=== PATIENT | female | born 1960 | race Caucasian/White ===

== ENCOUNTER 2022-05-12 02:13 | Observation (INO) ==
[2022-05-12 02:35] LABS: Basophils # 0.1 K/mcL (0.0-0.2); Basophils % 0.4 %; Eosinophils # 0.4 K/mcL (0.0-0.6); Eosinophils % 2.8 %; Hematocrit 46.3 % (35.3-44.9); Hemoglobin 15.4 g/dL (11.5-15.4); Immature Granulocytes % 0.4 % (0-4); Lymphocytes # 1.8 K/mcL (0.6-4.6); Lymphocytes % 13.2 %; Mean Corpuscular HGB Conc 33.3 g/dL (31.6-35.5); Mean Corpuscular Hemoglobin 30.1 pg (28.0-33.3); Mean Corpuscular Volume 90.4 fL (83.0-100.0); Mean Platelet Volume 8.3 fL (9.4-12.4); Monocytes % 7.3 %; Neutrophils # 10.3 K/mcL (1.6-8.9); Platelet Count 251 K/mcL (140-400); Red Blood Count 5.12 M/mcL (3.82-4.97); Red Cell Distribution Width 12.9 % (11.5-14.5); Segmented Neutrophils % 75.9 %; White Blood Count 13.5 K/mcL (4.3-11.1)
[2022-05-12 03:16] LABS: Calcium 9.7 mg/dL (8.6-10.3); Potassium 4.8 mEq/L (3.5-5.1)
[2022-05-12] MEDS ORDERED: Iopamidol - 370 500 ML MLS IVP ONE (03:29)
[2022-05-12] MEDS ORDERED: Ketorolac 30 MG/ML VIAL IVP ONE (04:10)
[2022-05-12] MEDS ORDERED: Naloxone 0.4 MG/ML INJ IVP PRN (05:52)
[2022-05-12] MEDS ORDERED: Acetaminophen 325 MG TABLET PO PRN (05:52)
[2022-05-12] MEDS ORDERED: *HR* OxyCODONE Immed Rel 5 MG TABLET PO PRN (05:52)
[2022-05-12] MEDS ORDERED: Ondansetron 4 MG/2 ML VIAL IVP PRN (05:52)
[2022-05-12] MEDS ORDERED: *HR* HYDROcodone/Acet 5/325 mg TABLET PO PRN (05:52)
[2022-05-12] MEDS ORDERED: D5% in Water 1,000 ML IVC PRN (06:11)
[2022-05-12] MEDS ORDERED: *HR* Dextrose 50 % in Water (Syg) 50 ML SYRINGE IVP PRN (06:11)
[2022-05-12] MEDS ORDERED: Dextrose Gel 15 GM/37.5 ML TUBE PO PRN ×2 (06:11)
[2022-05-12] MEDS: Ampicillin/Sulbactam 1,500 MG in 0.9 % Sodium Chloride Mini Bag 100 ML IVPB SCH ×2 (07:31→11:13)
[2022-05-12] MEDS: *HR* Enoxaparin 40 MG/0.4 ML SYRINGE SQ SCH (07:32)
[2022-05-12] MEDS: Insulin LISPRO 300 UNITS/3 ML VIAL SUBQ SCH ×4 (07:33→20:04)
[2022-05-12] MEDS: Lactobacillus 1 EACH CAP.SPRINK PO SCH ×2 (08:05→20:10)
[2022-05-12] MEDS: Chlorhexidine Rinse 15 ML MOUTHWASH MM SCH ×2 (08:05→20:10)
[2022-05-12] MEDS: Ketorolac 30 MG/ML VIAL IVP PRN ×2 (15:44→23:52)
[2022-05-12] MEDS: Ampicillin/Sulbactam 3,000 MG in 0.9 % Sodium Chloride Mini Bag 100 ML IVPB SCH ×2 (16:58→23:53)
[2022-05-12] MEDS ORDERED: Ketorolac 30 MG/ML VIAL IVP SCH (18:00)
[2022-05-12] MEDS: OXcarbazepine 150 MG TABLET PO SCH (20:10)
[2022-05-12] MEDS: Insulin DETEMIR 100 UNIT/ML X5UNITS SUBQ SCH (20:10)
[2022-05-13 02:49] LABS: Basophils % 0.4 %; Eosinophils # 0.2 K/mcL (0.0-0.6); Eosinophils % 2.8 %; Hematocrit 43.8 % (35.3-44.9); Hemoglobin 14.1 g/dL (11.5-15.4); Immature Granulocytes % 0.1 % (0-4); Lymphocytes # 1.3 K/mcL (0.6-4.6); Lymphocytes % 16.8 %; Mean Corpuscular HGB Conc 32.2 g/dL (31.6-35.5); Mean Corpuscular Volume 90.1 fL (83.0-100.0); Mean Platelet Volume 8.2 fL (9.4-12.4); Monocytes # 0.9 K/mcL (0.0-1.3); Monocytes % 11.6 %; Neutrophils # 5.1 K/mcL (1.6-8.9); Platelet Count 225 K/mcL (140-400); Red Blood Count 4.86 M/mcL (3.82-4.97); Red Cell Distribution Width 13.2 % (11.5-14.5); Segmented Neutrophils % 68.3 %; White Blood Count 7.4 K/mcL (4.3-11.1)
[2022-05-13 02:56] LABS: Calcium 9.1 mg/dL (8.6-10.3)
[2022-05-13] MEDS: Ampicillin/Sulbactam 3,000 MG in 0.9 % Sodium Chloride Mini Bag 100 ML IVPB SCH ×3 (06:22→17:06)
[2022-05-13] MEDS: *HR* Enoxaparin 40 MG/0.4 ML SYRINGE SQ SCH (06:22)
[2022-05-13] MEDS: Insulin LISPRO 300 UNITS/3 ML VIAL SUBQ SCH ×4 (08:06→20:32)
[2022-05-13] MEDS: Chlorhexidine Rinse 15 ML MOUTHWASH MM SCH ×2 (08:25→20:40)
[2022-05-13] MEDS: Lactobacillus 1 EACH CAP.SPRINK PO SCH ×2 (08:25→20:39)
[2022-05-13] MEDS: PARoxetine 20 MG TABLET PO SCH (08:25)
[2022-05-13] MEDS: OXcarbazepine 150 MG TABLET PO SCH ×2 (08:25→20:39)
[2022-05-13] MEDS: Loratadine 10 MG TABLET PO SCH (08:25)
[2022-05-13] MEDS: Patient Taking Own Medication 1 EACH PO SCH (08:25)
[2022-05-13] MEDS: Insulin DETEMIR 100 UNIT/ML X5UNITS SUBQ SCH (20:40)
[2022-05-14] MEDS: Ampicillin/Sulbactam 3,000 MG in 0.9 % Sodium Chloride Mini Bag 100 ML IVPB SCH ×2 (00:12→06:01)
[2022-05-14] MEDS: *HR* Enoxaparin 40 MG/0.4 ML SYRINGE SQ SCH (06:03)
[2022-05-14 07:11] VITALS: BP 119/65; PULSE 68; TEMP 98.6; O2SAT 93
[2022-05-14] MEDS: Insulin LISPRO 300 UNITS/3 ML VIAL SUBQ SCH ×2 (07:29→12:54)
[2022-05-14] MEDS: Loratadine 10 MG TABLET PO SCH (09:19)
[2022-05-14] MEDS: OXcarbazepine 150 MG TABLET PO SCH (09:19)
[2022-05-14] MEDS: Chlorhexidine Rinse 15 ML MOUTHWASH MM SCH (09:19)
[2022-05-14] MEDS: PARoxetine 20 MG TABLET PO SCH (09:19)
[2022-05-14] MEDS: Lactobacillus 1 EACH CAP.SPRINK PO SCH (09:19)
[2022-05-14] MEDS: Patient Taking Own Medication 1 EACH PO SCH (12:53)
== END 2022-05-14 17:30 | disposition home or self-care (01) ==
LOC: 3ANU 02:13 → EMEROOARM 02:13 → SUATTDRO 05:55 → 3ANU 06:26
PROVIDERS: ADMIT Pharmacist; ATTEND Internal Medicine